=== PATIENT | male | born 1995 | race African-American/Black ===

== ENCOUNTER 2021-01-09 23:49 | Emergency (ER) | payer OTHER ==
[2021-01-10] MEDS ORDERED: Augmentin 875-125 Tablet PO STA (00:07)
--- NOTE | 2021-01-10 00:09 | ERPHSYRPT ---
- History of Present Illness Time Seen by Provider: 01/10/21 00:10 Source: patient Exam Limitations: no limitations Physician History: Patient is a 25-year-old male presents to our emergency department for evaluation abdominal pain. Patient states he is got carious teeth. His left upper molar has been symptomatic for several days. Patient states he observed diarrhea today. Patient concerned that a suspected infection of this tooth is causing diarrhea. Patient has no other complaints. No numbness tingling or weakness. No fever or rash. Symptoms are mild to moderate in intensity. No specific worsening improving factors. Patient voices no other complaints or concerns at this time. Timing/Duration: today Severity: moderate Modifying Factors: Improves With: nothing Associated Symptoms: denies symptoms Allergies/Adverse Reactions: No Known Drug Allergies Allergy (Unverified 01/10/21 00:00) - Review of Systems Constitutional: No Symptoms, No Fever, No Chills Eyes: No Symptoms Ears, Nose, & Throat: No Symptoms Respiratory: No Symptoms, No Cough, No Dyspnea Cardiac: No Symptoms, No Chest Pain, No Edema, No Syncope Abdominal/Gastrointestinal: No Symptoms, No Abdominal Pain, No Nausea, No Vomiting, No Diarrhea Genitourinary Symptoms: No Symptoms, No Dysuria Musculoskeletal: No Symptoms, No Back Pain, No Neck Pain Skin: No Symptoms, No Rash Neurological: No Symptoms, No Dizziness, No Focal Weakness, No Sensory Changes Psychological: No Symptoms Endocrine: No Symptoms Hematologic/Lymphatic: No Symptoms Immunological/Allergic: No Symptoms All Other Systems: Reviewed and Negative - Nursing Vital Signs Nursing Vital Signs: Initial Vital Signs Pulse Rate 75 01/10/21 00:03 Respiratory Rate 18 01/10/21 00:03 Blood Pressure 130/91 01/10/21 00:03 O2 Sat by Pulse Oximetry 97 01/10/21 00:03 Pain Scale Pain Intensity 0 - Physical Exam General Appearance: no apparent distress, alert Eye Exam: PERRL/EOMI, eyes nml inspection Ears, Nose, Throat Exam: normal ENT inspection, TMs normal, pharynx normal, moist mucous membranes, other (Tooth #16 is carious. The adjacent soft tissue is swollen and tender. No drainage.) Neck Exam: normal inspection, non-tender, supple, full range of motion Respiratory Exam: normal breath sounds, lungs clear, No respiratory distress Cardiovascular Exam: regular rate/rhythm, normal heart sounds, normal peripheral pulses Gastrointestinal/Abdomen Exam: soft, normal bowel sounds, No tenderness, No mass Back Exam: normal inspection, normal range of motion, No CVA tenderness, No vertebral tenderness Extremity Exam: normal inspection, normal range of motion, pelvis stable Neurologic Exam: alert, oriented x 3, cooperative, normal mood/affect, nml cerebellar function, nml station & gait, sensation nml, No motor deficits Skin Exam: normal color, warm, dry, No rash Lymphatic Exam: No adenopathy SpO2 Interpretation: normal SpO2: 97 O2 Delivery: Room Air - Course Nursing assessment & vital signs reviewed: No Ordered Tests: Medication Summary Discontinued Medications Generic Name Dose Route Start Last Admin Trade Name Freq PRN Reason Stop Dose Admin Amoxicillin/Clavulanate Potassium 875 mg 01/10/21 00:07 01/10/21 00:16 Augmentin 875-125 Tablet PO 01/10/21 00:08 875 mg ONCE STA Administration Amoxicillin/Clavulanate Potassium Confirm 01/10/21 00:15 Augmentin 875-125 Tablet Administered 01/10/21 00:16 Dose 875 mg .ROUTE .LumateMED ONE - Progress Progress: improved Progress Note: Patient received a dose of Augmentin in our ED. Prescription for the same was forwarded the patient's pharmacy. Patient instructed on maintaining hydration and appropriate foods for diarrhea. The bright diet was discussed. Indication for further work-up at this time. Will discharge home. Patient currently has an appointment scheduled with his dentist. Patient agrees to follow-up with his primary care doctor within 48 hours for reevaluation. He voices no other complaints or concerns at this time. Patient states is ready for discharge. 01/10/21 00:25 Counseled pt/family regarding: diagnosis, need for follow-up - Departure Departure Disposition: Home Clinical Impression: Dental abscess, Carious teeth Condition: Stable Critical Care Time: No Instructions: Tooth Abscess (DC), Tooth Decay, Adult (DC) Additional Instructions: Discharge/Care Plan JERRICADONATOSHARUS GALVEZ was seen on 01/10/21 in the Emergency Room. The patient was counseled regarding Diagnosis,Lab results, Imaging studies, need for follow up and when to return to the Emergency Room. Prescriptions given: Discharge Note I have spoken with the patient and/or caregivers. I have explained the patient's condition, diagnosis and treatment plan based on the information available to me at this time. I have answered the patient's and/or caregiver's questions and addressed any concerns. The patient and/or caregivers have as good understanding of the patient's diagnosis, condition and treatment plan as can be expected at this point. The vital signs have been stable. The patient's condition is stable and appropriate for discharge from the emergency department. The patient will pursue further outpatient evaluation with the primary care physician or other designated or consulting physician as outlined in the discharge instructions. The patient and/or caregivers are agreeable to this plan of care and follow-up instructions have been explained in detail. The patient and/or caregivers have received these instruction. The patient/and or caregivers are aware that any significant change in condition or worsening of symptoms should prompt an immediate return to this or the closest emergency department or call 911. Prescriptions: Amox Tr/Potass Clav. 875 mg [Augmentin 875-125 Tablet] 1 each PO BID 7 Days #14 tablet
[2021-01-10 00:15] VITALS: BP 130/91; PULSE 75; O2SAT 97
[2021-01-10] MEDS ORDERED: Augmentin 875-125 Tablet ONE (00:15)
== END 2021-01-10 00:33 | disposition home or self-care (01) ==
LOC: ED 23:49
DX: K04.7 Periapical abscess without sinus (principal); K02.9 Dental caries, unspecified
CPT/HCPCS: 99283; A9270-GY